=== PATIENT | male | born 2005 | race Two or more races ===

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

== ENCOUNTER 2025-02-21 10:47 | Emergency (ER) | payer OTHER ==
[~2025-02-21] VITALS: Ht 170.2 cm; Wt 56.7 kg
[2025-02-21 11:32] VITALS: BP 112/64; O2SAT 100
[2025-02-21] MEDS ORDERED: ORPHENADRINE CITRATE 30 MG/ML AMPUL IM ONE (15:00)
[2025-02-21] MEDS ORDERED: DEXAMETHASONE SODIUM PHOSPHATE 4 MG/ML VIAL IM ONE (15:00)
[2025-02-21] MEDS ORDERED: DEXAMETHASONE SODIUM PHOSPHATE 4 MG/ML VIAL ONE (15:16)
[2025-02-21] MEDS ORDERED: ORPHENADRINE CITRATE 30 MG/ML AMPUL ONE (15:16)
== END 2025-02-21 18:02 | disposition home or self-care (01) ==
LOC: ER 10:48
DX: S00.83XA Contusion of other part of head, initial encounter (principal); W22.8XXA Striking against or struck by other objects, initial encounter; Y93.89 Activity, other specified; Y92.89 Other specified places as the place of occurrence of the external cause; M62.838 Other muscle spasm